=== PATIENT | male | born 1960 | race African-American/Black ===

== ENCOUNTER 2016-08-16 18:15 | Emergency (ER) | payer SELFPAY ==
[~2016-08-16] VITALS: Ht 193 cm; Wt 74.8 kg
[2016-08-16 18:17] VITALS: BP 152/101
[2016-08-16] MEDS ORDERED: METH-37 PO (18:42)
[2016-08-16] MEDS ORDERED: TRAM-29 PO (18:42)
--- NOTE | 2016-08-16 18:47 | PHYS DOC ---
Past Medical History Past Medical History: Migraines Past Surgical History: No Surgical History Alcohol Use: Occasionally Drug Use: Marijuana Adult General Chief Complaint Chief Complaint: BACK PAIN OR INJURY HPI HPI Patient is a 56 year old male who presents with moderate bilateral low back pain since last night. Patient denies any injury. Denies pain radiating to bilateral lower extremities.Denies any loss of bowel or bladder function.He states he has hx of remote back pain that does not require any medication. Review of Systems Review of Systems Constitutional: Denies fever or chills [] Musculoskeletal: back pain Integument: Denies rash or skin lesions [] Neurologic: Denies headache, focal weakness or sensory changes [] Endocrine: Denies polyuria or polydipsia [] Current Medications Current Medications Current Medications Medications (Trade) Dose Ordered Sig/Jerri Start Time Stop Time Status Last Admin Dose Admin Diazepam (Valium) 5 mg 1X ONCE 08/16/16 19:15 08/16/16 19:16 Ketorolac Tromethamine (Toradol Im) 60 mg 1X ONCE 08/16/16 19:15 08/16/16 19:16 Prednisone (Prednisone) 60 mg 1X ONCE 08/16/16 18:45 08/16/16 18:46 UNV Allergies Allergies Allergies Coded Allergies Type Severity Reaction Last Updated Verified Amoxicillin Allergy Unknown N/V ABD PAIN 11/24/13 No Physical Exam Physical Exam Constitutional: Well developed, well nourished, no acute distress, non-toxic appearance. [] Abdomen: Bowel sounds normal, soft, no tenderness, no masses, no pulsatile masses. [] Skin: Warm, dry, no erythema, no rash. [] Back: diffuse paraspinal muscle tenderness to bilateral lumbar region no midline tenderness, no CVA tenderness. [] Extremities: No tenderness, no cyanosis, no clubbing, ROM intact, no edema. [] Neurologic: Alert and oriented X 3, normal motor function, normal sensory function, no focal deficits noted. [] Psychologic: Affect normal, judgement normal, mood normal. [] Current Patient Data Vital Signs Vital Signs Date Time Temp Pulse Resp B/P Pulse Ox O2 Delivery O2 Flow Rate FiO2 08/16/16 18:17 97.9 67 16 98 Room Air 97.9 EKG EKG [] Radiology/Procedures Radiology/Procedures [] Course & Med Decision Making Course & Med Decision Making Pertinent Labs and Imaging studies reviewed. (See chart for details) Patient has back pain, no injury no signs of cauda equina syndrome.D/c with Robaxin and Ultram. Provided return precautions. John Disclaimer John Disclaimer This electronic medical record was generated, in whole or in part, using a voice recognition dictation system. Departure Departure Impression: Primary Impression: Back pain Disposition: HOME, SELF-CARE Condition: STABLE Referrals: NON,STAFF (PCP) follow up with your doctor next week Patient Instructions: Back Pain, Adult Additional Instructions: Please follow up with your primary care doctor for back pain. Come back to the ED if symptoms worsen Scripts Tramadol Hcl (Ultram)50 Mg Tablet1 Tab PO Q6HRS #30 TAB Prov:LASHON GOLDBERG APRN 08/16/16 Methocarbamol (Robaxin)500 Mg Tablet1 Tab PO TID #30 TAB Prov:LASHON GOLDBERG APRN 08/16/16 Problem Qualifiers Primary Impression: Back pain Back pain location: low back pain Chronicity: acute Back pain laterality: bilateral Sciatica presence: without sciatica Qualified Code: M54.5 - Low back pain LASHON GOLDBERG APRN Aug 16, 2016 18:47
[2016-08-16] MEDS ORDERED: KETOROLAC TROMETHAMINE 60 MG/2 ML SYRINGE. IM ONE (19:15)
[2016-08-16] MEDS ORDERED: DIAZEPAM 5 MG TABLET PO ONE (19:15)
[2016-08-16] MEDS ORDERED: PREDNISONE 20 MG TABLET PO ONE (19:15)
== END 2016-08-16 18:57 | disposition home or self-care (01) ==
LOC: ER 18:15
DX: M54.5 Low back pain (principal); G43.909 Migraine, unspecified, not intractable, without status migrainosus; F12.10 Cannabis abuse, uncomplicated
CPT/HCPCS: 96372; 99283; J1885; J7512; 99284-25